=== PATIENT | female | born 1950 | race Two or more races ===

== ENCOUNTER 2021-04-12 12:04 | Emergency (ER) | payer MEDICARE, OTHER ==
[~2021-04-12] VITALS: Ht 165.1 cm; Wt 58.1 kg
[2021-04-12 15:48] VITALS: BP 204/75
[2021-04-12] MEDS ORDERED: cloNIDine HCL 0.1 MG TAB PO ONE (16:00)
== END 2021-04-12 17:19 | disposition home or self-care (01) ==
LOC: ER 12:04
DX: S01.81XA Laceration without foreign body of other part of head, initial encounter (principal); I16.0 Hypertensive urgency; Z90.710 Acquired absence of both cervix and uterus; W01.0XXA Fall on same level from slipping, tripping and stumbling without subsequent striking against object, initial encounter; Y93.89 Activity, other specified; Y92.89 Other specified places as the place of occurrence of the external cause; Y99.8 Other external cause status
CPT/HCPCS: 12013; 70450; 70486; 72192